=== PATIENT | female | born 1975 | race Caucasian/White ===

== ENCOUNTER 2017-09-07 16:29 | Emergency (ER) | payer MEDICAID, SELFPAY ==
[2017-09-07 16:30] VITALS: BP 142/84; PULSE 89; RESP 17; TEMP 36.9; O2SAT 98; BMI 17.7
--- NOTE | 2017-09-07 17:18 | ED.DCSUM_ITS ---
- ER Visit Summary Date of Service: 09/07/17 Chief Complaint: Sore throat History of Present Illness: The patient is a 42 F 42 history worsening sore throat, pain with swallowing. States unable to eat due to pain. No fevers. States initially noted some white flakes the back or tongue, she is not on any steroid inhalers or any immunocompromise history. No chest pains or shortness of breath. Denies previous similar symptoms. Physical Examination: General: Alert and oriented ?3, no acute distress HEENT: Normocephalic, atraumatic. Posterior pharyngeal erythema along with erythema on the back of her tongue.. 1+ symmetric tonsils. No trismus. Uvula midline. Moist mucosa membranes. Airway patent. Neck: supple, nontender. No lymphadenopathy. Cardiovascular: Regular rate and rhythm, no murmurs Respiratory: Normal breath sounds, symmetric, no distress Abdomen: Soft, nontender, nondistended Extremities: Nontender, no edema, pulses intact ?4 Neuro: no focal neurological deficits. Test Results: Rapid strep negative. Soft tissue neck x-ray notes mild subglottic narrowing. Emergency Department Course and Treatment: Rapid strep negative. Vitals stable. She is given Decadron. X-ray soft tissue neck normal epiglottis. There is mild subglottic narrowing concerns of croup per radiology. With patient's symptoms likely laryngitis. She does complain of some mild voice loss. There is no thrush on examination. Her for symptoms she will be provided Magic mouthwash to use as needed. She will follow-up as an outpatient. She return if any worsening symptoms. Treatment Plan: [] Disposition: Discharge Impression: 1. Acute laryngitis This note was generated with [employer] dictation software. It may contain incorrect words, spelling, and punctuation that were not noted in review of the chart prior to signing ED Disposition - Plan for ED Patient: Disposition: Home or Assisted Living Chief Complaint: Sore Throat Diagnosis: Acute laryngitis Instructions: ED Laryngitis Prescriptions: Magic Mouth Wash 5 ml PO Q6H PRN PRN #120 ml PRN Reason: Sore Throat Referrals: Wenceslao Khan MD [Primary Care Provider] - 3-5 Days
--- NOTE | 2017-09-07 17:30 | RAD_ITS ---
STUDY: X-RAY - SOFT TISSUE NECK REASON FOR EXAM: Female, 42 years old. Soft throat TECHNIQUE: AP and lateral view(s) of the neck were obtained. COMPARISON: None. FINDINGS: Normal visualized nasopharynx, oropharynx, hypopharynx. Normal epiglottis. There is narrowing of the subglottic air column which may be consistent with croup Normal prevertebral soft tissue structures. Normal visualized osseous structures. The soft tissue structures are unremarkable. RAD/Neck for Soft Tissue IMPRESSION: Mild subglottic stenosis consistent with croup Electronically Signed: Dejon Chang MD at 17:54 EST , Service support ,
[2017-09-07 18:27] VITALS: BP 107/54; PULSE 84; RESP 15; O2SAT 100
== END 2017-09-07 18:48 | disposition home or self-care (01) ==
PROVIDERS: Emergency Provider Emergency Medicine; Family Provider Family Medicine; PCP Family Medicine
DX: J04.0 Acute laryngitis (principal); J44.9 Chronic obstructive pulmonary disease, unspecified; Z72.0 Tobacco use
CPT/HCPCS: 70360; 87880; 99282

== ENCOUNTER 2018-04-13 21:38 | Emergency (ER) | payer MEDICAID, SELFPAY ==
[2018-04-13 21:38] VITALS: BP 117/83; PULSE 87; RESP 14; TEMP 37.2; O2SAT 100; BMI 18.0
--- NOTE | 2018-04-13 21:57 | ED.VISSUMM ---
- ER Visit Summary Date of Service: 04/13/18 Chief Complaint: Tongue pain History of Present Illness: The patient is a 42 F who states that Monday evening she ate a slice of [employer] pizza. She states she could barely get through the first piece as it was causing pain to her tongue and she wondered if they change their saw since she was allergic to it. She could not make it through the second piece felt like she needed to take an inhaler. She has been very busy so has been difficult for her to seek care to [facility] when she had time she came to the emergency department. Very concerned that she may be infectious to children. She states that family member who is a nurse believes that she may have thrush. She does not have HIV. She is not immunocompromise. She notes a burning sensation to the tongue. She is a smoker Physical Examination: Afebrile vital signs stable Gen: Well-nourished well-developed Head: Normocephalic atraumatic Eyes: Perrl EOMI ENT: TMs clear no rhinorrhea moist mucous membranes the tongue shows areas of redness as well as white plaque-like that does not exactly scrape off. This is usually consistent with geographic tongue. Neck: Supple no lymphadenopathy no JVD nontender CVS: Regular rate rhythm no murmurs normal S1-S2 Respiratory: No distress clear to auscultation bilaterally chest nontender Abdomen: Soft nontender nondistended normal bowel sounds no masses Back: Nontender Extremity: Nontender no edema Skin: Normal color no rash Neuro: alert orientated ?3 CN II-XII intact normal strength sensation reflexes gait cerebellar Psych: Normal affect normal mood Emergency Department Course and Treatment: Patient should avoid spicy foods and cigarettes. Patient will use Peridex and as needed viscous lidocaine. She should follow-up with primary care and dentistry. Impression: 1. Geographic tongue This note was generated with [employer] dictation software. It may contain incorrect words, spelling, and punctuation that were not noted in review of the chart prior to signing ED Disposition - Plan for ED Patient: Disposition: Home or Assisted Living Chief Complaint: Other, Pain/Inj Diagnosis: Geographical tongue Prescriptions: Chlorhexidine Gluconate [Peridex] 15 ml MM BID #300 ml Lidocaine 2% Viscous [Xylocaine Viscous] 15 ml MM TID PRN #30 udc PRN Reason: Pain Referrals: Wenceslao Khan MD [Primary Care Provider] - Additional Instructions: Avoid cigarettes Avoid spicy foods
--- NOTE | 2018-04-13 22:01 | ED.DCSUM_ITS ---
- ER Visit Summary Date of Service: 04/13/18 Chief Complaint: Tongue pain History of Present Illness: The patient is a 42 F who states that Monday evening she ate a slice of [employer] pizza. She states she could barely get through the first piece as it was causing pain to her tongue and she wonder ed if they change their saw since she was allergic to it. She could not make it through the second piece felt like she needed to take an inhaler. She has been very busy so has been difficult for her to seek care to [facility] when she had time she came to the emergency department. Very concerned that she may be infectious to children. She states that family member who is a nurse believes that she may have thrush. She does not have HIV. She is not immunocompromise. She notes a burning sensation to the tongue. She is a smoker Physical Examination: Afebrile vital signs stable Gen: Well-nourished well-developed Head: Normocephalic atraumatic Eyes: Perrl EOMI ENT: TMs clear no rhinorrhea moist mucous membranes the tongue shows areas of redness as well as white plaque-like that does not exactly scrape off. This is usually consistent with geographic tongue. Neck: Supple no lymphadenopathy no JVD nontender CVS: Regular rate rhythm no murmurs normal S1-S2 Respiratory: No distress clear to auscultation bilaterally chest nontender Abdomen: Soft nontender nondistended normal bowel sounds no masses Back: Nontender Extremity: Nontender no edema Skin: Normal color no rash Neuro: alert orientated ?3 CN II-XII intact normal strength sensation reflexes gait cerebellar Psych: Normal affect normal mood Emergency Department Course and Treatment: Patient should avoid spicy foods and cigarettes. Patient will use Peridex and as needed viscous lidocaine. She should follow-up with primary care and dentistry. Impression: 1. Geographic tongue This note was generated with [employer] dictation software. It may contain incorrect words, spelling, and punctuation that were not noted in review of the chart prior to signing ED Disposition - Plan for ED Patient: Disposition: Home or Assisted Living Chief Complaint: Other, Pain/Inj Diagnosis: Geographical tongue Prescriptions: Chlorhexidine Gluconate [Peridex] 15 ml MM BID #300 ml Lidocaine 2% Viscous [Xylocaine Viscous] 15 ml MM TID PRN #30 udc PRN Reason: Pain Referrals: Wenceslao Khan MD [Primary Care Provider] - Additional Instructions: Avoid cigarettes Avoid spicy foods
[2018-04-13] MEDS: Chlorhexidine 480 ML 15 ML PO (22:22)
[2018-04-13 22:30] VITALS: RESP 16
== END 2018-04-13 22:30 | disposition home or self-care (01) ==
PROVIDERS: Emergency Provider Emergency Medicine; Family Provider Family Medicine; PCP Family Medicine
DX: K14.1 Geographic tongue (principal); J44.9 Chronic obstructive pulmonary disease, unspecified; F17.200 Nicotine dependence, unspecified, uncomplicated
CPT/HCPCS: 99283

== ENCOUNTER 2022-04-26 22:19 | Emergency (ER) | payer MEDICAID, SELFPAY ==
[2022-04-26 22:19] VITALS: BP 128/86; PULSE 106; RESP 16; TEMP 36.4; O2SAT 98; BMI 18.0
[2022-04-26] MEDS: DiphenhydrAMINE 50 MG/ML Syringe 25 MG IV (22:56)
[2022-04-26] MEDS: Metoclopramide 10 MG/2 ML Vial IV (22:58)
[2022-04-26] MEDS: 0.9% Normal Saline 1,000 ML 999 ML IV (22:58)
[2022-04-26] MEDS: Erythromycin Base 1 OPTH.TUBE 1 APPLIC RIGHT EYE (22:59)
--- NOTE | 2022-04-26 23:53 | EDS_ITS ---
HPI History of Present Illness Chief Complaint: Headache Informant: patient Onset/Context/Timing Onset: Today Context: Sudden Timing: Continuous Quality -Headache: Positive for Similar Prior Headaches Location: Frontal Worsened by: Light Relieved by: Nothing Associated Symptoms/Injury Associated Symptoms: Positive for Nausea, Vomiting, Sinus Pressure, Preceding Aura, Visual Changes, Blurred Vision and Photophobia; Negative for Fever, Sore Throat, Numbness, Tingling or Visual Loss Narrative Narrative: Patient presents with migraine headache that began today. Patient states she has had a stye in her right upper eyelid for the last 5 days and pain in her left ear for the last 5 days. Patient states her headache feels similar to prior migraine headaches. Patient states it is mainly over the frontal area. Patient states it is worse with light. Patient states she had some lights in her vision prior to the start of her headache. Patient states this is similar to prior auras. Patient admits to some photophobia. Patient also admits to some blurred vision. Patient denies any fevers or chills. Patient does admit to some sinus pressure. [facility] Medical History (Updated 04/27/22 @ 00:[address] Ghanshyam Castorena DO) Migraine headache Home Medications oxycodone-acetaminophen 5 mg-325 mg tablet 1 tab PO Q4H PRN PRN Pain ##12 06/26/16 [Rx Last Taken Unknown] Magic Mouth Wash 5 ml PO Q6H PRN PRN Sore Throat ##120 09/07/17 [Rx Last Taken Unknown] chlorhexidine gluconate 0.12 % mouthwash 15 ml MM BID #300 mL 04/13/18 [Rx Last Taken Unknown] lidocaine HCl 2 % mucosal solution 15 ml MM TID PRN Pain ##30 04/13/18 [Rx Last Taken Unknown] Allergy/AdvReac Type Severity Reaction Status Date / Time aspirin Allergy Nausea/Vom/ Verified 04/26/22 22:21 Diarrhea ibuprofen Allergy Nausea/Vom/ Verified 04/26/22 22:21 Diarrhea naproxen [From Naprosyn] Allergy Nausea/Vom/ Verified 04/26/22 22:21 Diarrhea tramadol HCl [From Ultram] Allergy Nausea/Vom/ Verified 04/26/22 22:21 Diarrhea Surgical History (Updated 04/26/22 @ 23:[address] Ghanshyam Schwiger, DO) Hx of cholecystectomy Social History Smoking Status: Current every day smoker tobacco type: cigarettes ROS ROS ED Constitutional Constitutional ED: Denies chills or fever(s) Eyes Eyes: Reports blurry vision; Denies diplopia ENT ENT ED: Reports ear pain left; Denies rhinorrhea or sore throat Cardiovascular Cardiovascular: Reports chest pain; Denies palpitations Respiratory/Chest Respiratory/Chest: Denies cough or dyspnea Gastrointestinal Gastrointestinal: Reports nausea and vomiting Genitourinary Genitourinary ED: Denies dysuria or hematuria Musculoskeletal Musculoskeletal: Reports neck pain; Denies back pain Integumentary Denies abscess or rash Neurologic Neurologic: Reports headache(s); Denies weakness Allergic/Immunologic Allergic/Immunologic ED: Denies mouth swelling or urticaria EXAM Physical Exam Const Vital Signs: 04/26/22 22:19 Temperature 97.6 F L Temperature Source Temporal Pulse Rate 106 H Respiratory Rate 16 Blood Pressure 128/86 H Blood Pressure Mean 100 Pulse Ox 98 Oxygen Delivery Method Room Air Positive well nourished and well developed General Appearance ED: well developed HEENT Reports TM's clear and moist mucous membranes Tympanic Membrane ED: Yes TM's clear Eyes PERRL and EOMs intact bilaterally Eyes Narrative: There is an internal hordeolum of the lateral aspect of the right upper eyelid. There is no active discharge or drainage. There is some tenderness over this area. Neck supple and no JVD Resp normal respiratory effort and clear to auscultation bilaterally Cardio regular rate, regular rhythm and no murmurs GI normal to inspection, nondistended, normoactive bowel sounds and non-tender Palpation: soft Extremity normal to inspection General Extremety ED: Negative for edema or tenderness General Extremity: Negative for edema Neuro oriented x3, CN's II-XII intact bilaterally and no sensory deficits noted Sensorium / Orientation: alert Motor Exam: strength 5/5 throughout Psych mental status grossly normal Skin no rashes or lesions noted MDM MDM MDM Narrative Medical decision making narrative: Patient was given erythromycin ophthalmic ointment to the right eye. Patient was given the tube to go home with. Patient was instructed to use warm compresses over the right eye. Patient was given IV fluids, Reglan, and Benadryl. Patient is feeling better on reevaluation. Patient was instructed to rest in a dark quiet room. Patient was instructed to follow-up with her primary care physician in 5 to 7 days. Patient understood and was agreeable with the plan. All questions were answered. Discharge Plan Triage Chief Complaint: Headache Other Complaint: Ear Problem Eye Problem ED Provider: Ghanshyam Castorena Dx/Rx/DC Orders Clinical Impression: Migraine headache, Hordeolum internum of right upper eyelid Instructions: ED, Migraine (Classical), ED Sty Prescriptions: No Action oxycodone-acetaminophen 1 TABLET tablet 1 tab PO Q4H PRN PRN (Reason: Pain) Qty: 12 0RF Magic Mouth Wash 5 ml PO Q6H PRN PRN (Reason: Sore Throat) Qty: 120 0RF Rx Instructions: Pharmacist: Compound with equal parts DiphenhydrAMINE, Mylanta, and Lidocaine Viscous. swish and swallow as needed. chlorhexidine gluconate 15 ML mouthwash 15 ml MM BID Qty: 300 0RF lidocaine HCl 15 ML solution 15 ml MM TID PRN (Reason: Pain) Qty: 30 0RF Rx Instructions: Swish and Spit before meals Primary Care Provider: Jose Daniel Tanner Referrals: Jose Daniel Tanner DO [Primary Care Provider] - 5-7 Days Activity Restrictions/Additional Instructions: Apply a thin strip of antibiotic ointment to your right eye 3 times a day. Use warm compresses to your right upper eyelid. This will help it drain. Disposition Disposition: Home, Self Care
== END 2022-04-27 00:08 | disposition home or self-care (01) ==
PROVIDERS: Emergency Provider Emergency Medicine; Visit Provider Emergency Medicine
DX: H00.021 Hordeolum internum right upper eyelid (principal); G43.909 Migraine, unspecified, not intractable, without status migrainosus; F17.210 Nicotine dependence, cigarettes, uncomplicated; R07.9 Chest pain, unspecified
CPT/HCPCS: 96361; 96374; 96375; 99283; J7030; A4216

== ENCOUNTER 2022-10-18 22:35 | Emergency (ER) | payer MEDICAID, SELFPAY ==
[2022-10-18 22:36] VITALS: BP 124/75; PULSE 102; RESP 16; TEMP 37.2; O2SAT 99
--- NOTE | 2022-10-18 22:41 | EDS_ITS ---
HPI History of Present Illness Chief Complaint: Headache Narrative Narrative: 47-year-old female here with headache. She notes that started gradually proximally 24 hours ago. Denies any recent head trauma. She denies any focal numbness weakness slurred speech or facial drooping. She denies any neck stiffness, recent fever or sick contacts patient denies sudden onset or thunderclap headache, denies maximal intensity within 1 minute, vomiting, neck pain or stiffness, changes in vision, fever, history malignancy, syncope, seizures. She endorses nausea and photophobia. [facility] Medical History (Updated 10/18/22 @ 22:[address] Jeremy Lopez, DO) Migraine headache Home Medications oxycodone-acetaminophen 5 mg-325 mg tablet 1 tab PO Q4H PRN PRN Pain #12 tabs 06/26/16 [Rx Last Taken Unknown] Magic Mouth Wash 5 ml PO Q6H PRN PRN Sore Throat #120 mL 09/07/17 [Rx Last Taken Unknown] chlorhexidine gluconate 0.12 % mouthwash 15 ml MM BID #300 mL 04/13/18 [Rx Last Taken Unknown] lidocaine HCl 2 % mucosal solution 15 ml MM TID PRN Pain ##30 04/13/18 [Rx Last Taken Unknown] prochlorperazine maleate 5 mg tablet (Compazine) 5 mg PO TID PRN headache 7 days #21 tabs 10/18/22 [Rx Last Taken Unknown] Allergy/AdvReac Type Severity Reaction Status Date / Time aspirin Allergy Nausea/Vom/ Verified 10/18/22 22:35 Diarrhea ibuprofen Allergy Nausea/Vom/ Verified 10/18/22 22:35 Diarrhea naproxen [From Naprosyn] Allergy Nausea/Vom/ Verified 10/18/22 22:35 Diarrhea tramadol HCl [From Ultram] Allergy Nausea/Vom/ Verified 10/18/22 22:35 Diarrhea Surgical History Hx of cholecystectomy Social History Smoking Status: Current every day smoker tobacco type: cigarettes ROS ROS ED ROS Narrative Constitutional: Denies fever HEENT: Denies sore throat Neck: Denies neck pain Cardiovascular: Denies chest pain, syncope Respiratory: Denies shortness of breath GI: Denies nausea vomiting or abdominal pain : Denies changes in urinary habits Musculoskeletal: Denies muscle or joint pain Neurologic: Denies numbness weakness or loss of sensation, endorses headache Skin denies rash EXAM Physical Exam Narrative Exam Narrative: Nursing triage notes reviewed, Vital signs reviewed Constitutional: please see [facility] HENT: MMM Eyes: Pupils equal round and reactive to light, Extraocular muscles intact Neck: No stridor, no JVD, full neck ROM Lungs: Clear to auscultation, No wheezing or rales. No increased work of breathing, no conversational dyspnea, no accessory muscle use, no nasal flaring. No respiratory distress noted Heart: Regular rate and rhythm, No murmurs, No rubs and No gallops, 2+ distal pulses (radial, femoral, posterior tibial) in all extremities Abdomen: Soft, there is no tenderness, rigidity, rebound or guarding, no obvious peritoneal signs, no palpable pulsatile abdominal masses, no auscultated abdominal bruit : No CVAT Extremities: No edema Neuro: Alert and oriented x3, neuro exam at baseline, cranial nerves II through XII are intact. No pain with extraocular muscle movement. There is negative test of skew. Normal speech. 5 of 5 strength in upper and lower extremities in flexion extension. Intact sensation to light touch in upper and lower extremity dermatomes. No truncal or extremity ataxia. No dysdiadochokinesia. Normal gait. 2+ reflexes. No meningeal signs. Negative Babinski. NIH of 0 Skin: No rash or lesions noted Const Vital Signs: 10/18/22 22:36 Temperature 99.0 F Temperature Source Temporal Pulse Rate 102 H Respiratory Rate 16 Blood Pressure 124/75 H Blood Pressure Mean 91 Pulse Ox 99 Oxygen Delivery Method Room Air [facility] [place] Narrative Medical decision making narrative: Chief Complaint: Headache External records reviewed: Last visit for headache remotely, no recent neuroimaging I considered the following differential diagnosis: Subarachnoid hemorrhage, m eningitis, intracranial hemorrhage, skull fracture, primary headache Exam without focal neurologic deficits. She had no red flag symptoms to suggest catastrophic headache such as subarachnoid hemorrhage, meningitis intracranial hemorrhage carotid artery dissection etc. Her presentation and history with photophobia and presentation similar to prior migraines is suggestive of a primary headache. She was treated accordingly with oral Compazine, IM Toradol, oral Decadron. She was given Compazine as needed for home-going given neurology follow-up. The patient looks great and is in no significant objective discomfort currently. The patient's headache is non-specific. Exam is unremarkable. The patient is in no distress and the patient?s neurological exam is non-focal, neck is supple and without meningismus. The headache is not consistent with meningitis or infection, nor is it consistent with intracranial bleed (SAH etc.), carotid dissection, nor mass by history and examination. Medication and outpatient follow-up was instructed. The patient was instructed to return as needed or if symptoms changed or worsened, fever developed or inability to tolerate fluids. The patient agreed with plan. Factors affecting care: History of migraine Social determinants of health: Current every day smoker History obtained from others: None Shared decision making: I will have a discussion with the patient and or visitors regarding risk/benefits of further testing or admission. They will be made aware of of the risk/benefits inherent in this decision they will be given the opportunity to voice understanding. Consults: None Treatment and Re-Evaluation :: Repeat neurologic exam remains benign. Discharge Plan Triage Chief Complaint: Headache ED Provider: Jeremy Lopez Dx/Rx/DC Orders Clinical Impression: Migraine headache Instructions: ED Headache Unspecified Prescriptions: New prochlorperazine maleate [Compazine] 5 mg tablet 5 mg PO TID PRN (Reason: headache) 7 Days Qty: 21 0RF No Action oxycodone-acetaminophen 1 TABLET tablet 1 tab PO Q4H PRN PRN (Reason: Pain) Qty: 12 0RF Magic Mouth Wash 5 ml PO Q6H PRN PRN (Reason: Sore Throat) Qty: 120 0RF Rx Instructions: Pharmacist: Compound with equal parts DiphenhydrAMINE, Mylanta, and Lidocaine Viscous. swish and swallow as needed. chlorhexidine gluconate 15 ML mouthwash 15 ml MM BID Qty: 300 0RF lidocaine HCl 15 ML solution 15 ml MM TID PRN (Reason: Pain) Qty: 30 0RF Rx Instructions: Swish and Spit before meals Primary Care Provider: Jose Daniel Tanner Referrals: Jose Daniel Tanner DO [Primary Care Provider] - Disposition Disposition: Home, Self Care
[2022-10-18] MEDS: Ketorolac 15 MG/ML Vial IM (23:38)
[2022-10-18] MEDS: dexAMETHasone 4 MG Tablet 6 MG PO (23:38)
[2022-10-18] MEDS: proCHLORPERazine 5 MG Tablet PO (23:38)
[2022-10-18 23:42] VITALS: BMI 17.3
[2022-10-19 00:16] VITALS: BP 105/70; PULSE 95; RESP 18; O2SAT 100
== END 2022-10-19 01:13 | disposition home or self-care (01) ==
PROVIDERS: Emergency Provider Emergency Medicine; Visit Provider Emergency Medicine
DX: G43.909 Migraine, unspecified, not intractable, without status migrainosus (principal); F17.210 Nicotine dependence, cigarettes, uncomplicated
CPT/HCPCS: 93005; 96372; 99283

== ENCOUNTER 2023-01-27 19:03 | Emergency (ER) | payer MEDICAID, SELFPAY ==
[2023-01-27 19:04] VITALS: BP 137/77; PULSE 70; RESP 18; TEMP 36.8; O2SAT 99; BMI 17.5
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
[2023-01-27] MEDS: Erythromycin Base 1 OPTH.TUBE 1 APPLIC LEFT EYE (21:16)
== END 2023-01-27 21:22 | disposition home or self-care (01) ==
PROVIDERS: Emergency Provider Emergency Medicine; Visit Provider Emergency Medicine
DX: H00.011 Hordeolum externum right upper eyelid (principal); H00.014 Hordeolum externum left upper eyelid; F17.210 Nicotine dependence, cigarettes, uncomplicated
CPT/HCPCS: 99283

== ENCOUNTER 2023-07-07 13:14 | Emergency (ER) | payer MEDICAID, SELFPAY ==
[2023-07-07 13:15] VITALS: BP 143/93; PULSE 92; RESP 14; TEMP 36.2; O2SAT 100; BMI 17.6
--- NOTE | 2023-07-07 13:46 | EDS_ITS ---
HPI History of Present Illness Chief Complaint: Headache Informant: patient Narrative Narrative: Patient presents with what she describes as her normal migraine. She has had migraines since she is 10 years old. She has had extensive evaluation. She normally takes rizatriptan but she is out of it. She also normally takes Zofran but she is out of that. This headache started about 330 this morning. It is across the whole front of her headache and radiates a l ittle toward the back. She has some photophobia and nausea and vomiting. No trauma. No fevers. She states this is her typical headache. [facility] Medical History Migraine headache Home Medications oxycodone-acetaminophen 5 mg-325 mg tablet 1 tab PO Q4H PRN PRN Pain #12 tabs 06/26/16 [Rx Last Taken Unknown] Magic Mouth Wash 5 ml PO Q6H PRN PRN Sore Throat #120 mL 09/07/17 [Rx Last Taken Unknown] chlorhexidine gluconate 0.12 % mouthwash 15 ml MM BID #300 mL 04/13/18 [Rx Last Taken Unknown] lidocaine HCl 2 % mucosal solution 15 ml MM TID PRN Pain ##30 04/13/18 [Rx Last Taken Unknown] prochlorperazine maleate 5 mg tablet (Compazine) 5 mg PO TID PRN headache 7 days #21 tabs 10/18/22 [Rx Last Taken Unknown] ondansetron 4 mg disintegrating tablet 4 mg PO Q8H PRN PRN Nausea #10 tabs 07/07/23 [Rx Last Taken Unknown] rizatriptan 5 mg disintegrating tablet See Rx Instructions PO .COMPLEX #10 tabs 07/07/23 [Rx Last Taken Unknown] Allergy/AdvReac Type Severity Reaction Status Date / Time aspirin Allergy Nausea/Vom/ Verified 07/07/23 13:15 Diarrhea ibuprofen Allergy Nausea/Vom/ Verified 07/07/23 13:15 Diarrhea naproxen [From Naprosyn] Allergy Nausea/Vom/ Verified 07/07/23 13:15 Diarrhea tramadol HCl [From Ultram] Allergy Nausea/Vom/ Verified 07/07/23 13:15 Diarrhea Surgical History Hx of cholecystectomy Social History Smoking Status: Current every day smoker tobacco type: cigarettes ROS ROS ED ROS Narrative A complete review of systems was performed and is negative except as documented in the history of present illness. Some specific details below. Constitutional: No recent fevers or chills. No rigors. Patient has not generally felt ill. She felt fine before the headache started. EYE: No discharge, visual complaints, or pain. She has photophobia but no visual scotoma or flashing lights. She has had that occasionally but not routinely. ENT: No difficulty swallowing. No swelling. No sinus pressure or pain. No nasal discharge. No change in hearing. No ear pain. CV: No chest pain, pressure or aching. No palpitations or irregular beats. Patient has not been presyncopal or syncopal. Respiratory: No trouble breathing. No cough. She is a smoker and was counseled to quit. GI: No abdominal pain. She has had some nausea and vomiting. She is not that nauseated now though. : No frequency dysuria or hematuria. Musculoskeletal: No recent trauma. No pains. No swelling. Skin: No rash. No diaphoresis. Neuro: No weakness or numbness. No difficulty with speaking. No difficulty understanding speech. No visual loss. Please see history of present illness also. Endocrine: No polyuria or polydipsia. EXAM Physical Exam Narrative Exam Narrative: CONSTITUTIONAL: Patient is nontoxic in appearance. She is in a dark room. But she is conversant. HEENT: No notable trauma. Mucous membranes moist. No sinus tenderness. Tympanic membranes are normal. No temporal artery tenderness. No facial rashes or swelling. She actually feels better with some pressure on the forehead. EYES: No conjunctival injection. No proptosis. She does have some mild photophobia but pupillary response and range of motion is normal NECK: No meningismus. No JVD. Range of motion is normal looking up down left and right without discomfort. CARDIOVASCULAR: Regular rate. Regular rhythm. No notable murmur. No JVD. RESPIRATORY: No respiratory distress. Breathing is unlabored. No wheezes. No rhonchi. No rales. No pain with a deep breath. GASTROINTESTINAL: Not distended. Bowel sounds are normal. No tenderness. No guarding. No rebound. No palpable mass. No bruit. GENITOURINARY: No tenderness over the bladder. No CVA tenderness. MUSCULOSKELETAL: Atraumatic. No peripheral edema. No cord. No tenderness along the deep venous system. No asymmetry. NEUROLOGICAL: Patient is alert and oriented. No focal deficit noted. NIH stroke scale is 0. SKIN: No noted rashes. No diaphoresis. No vesicles noted. PSYCHIATRIC: Patient is calm. Mood is appropriate. Const Vital Signs: 07/07/23 13:15 Temperature 97.2 F L Temperature Source Temporal Pulse Rate 92 Respiratory Rate 14 Blood Pressure 143/93 H Blood Pressure Mean 109 Pulse Ox 100 MDM MDM MDM Narrative Medical decision making narrative: Patient was given IV, Benadryl and Compazine. She is getting better but not c ompletely gone. But when I talked to her she was much more animated. She was talking. Opening the door and the lights did not bother her. She and me to her daughter. She admitted she was feeling better. We talked about further meds. She has received Decadron and Toradol and done well. She states that works very well. Although she has GI upset with oral nonsteroidals IV or IM do not bother her. She would like to go home. We will get her these meds and then get her home. I have written for further meds at home to refill as she requested. We discussed reasons to return. Discharge Plan Triage Chief Complaint: Headache ED Provider: Herminio Mccormick Dx/Rx/DC Orders Clinical Impression: Migraine headache Instructions: ED, Migraine (Classical) Prescriptions: New rizatriptan 5 mg tablet,disintegrating See Rx Instructions .ROUTE .COMPLEX Qty: 10 0RF Rx Instructions: take 1 tablet at onset of headache; if no relief, may repeat 1 tablet after at least 2 hrs ondansetron [ondansetron] 4 mg tablet,disintegrating 4 mg PO Q8H PRN PRN (Reason: Nausea) Qty: 10 0RF No Action oxycodone-acetaminophen 1 TABLET tablet 1 tab PO Q4H PRN PRN (Reason: Pain) Qty: 12 0RF Magic Mouth Wash 5 ml PO Q6H PRN PRN (Reason: Sore Throat) Qty: 120 0RF Rx Instructions: Pharmacist: Compound with equal parts DiphenhydrAMINE, Mylanta, and Lidocaine Viscous. swish and swallow as needed. chlorhexidine gluconate 15 ML mouthwash 15 ml MM BID Qty: 300 0RF lidocaine HCl 15 ML solution 15 ml MM TID PRN (Reason: Pain) Qty: 30 0RF Rx Instructions: Swish and Spit before meals prochlorperazine maleate [Compazine] 5 mg tablet 5 mg PO TID PRN (Reason: headache) 7 Days Qty: 21 0RF Primary Care Provider: Jose Daniel Tanner Referrals: Jose Daniel Tanner DO [Primary Care Provider] - Disposition Disposition: Home, Self Care
[2023-07-07] MEDS: DiphenhydrAMINE 50 MG/ML Syringe 25 MG IV (13:54)
[2023-07-07] MEDS: 0.9% Normal Saline (1000mL) 1,000 ML 999 ML IV (13:54)
[2023-07-07] MEDS: proCHLORPERazine 10 MG/2 ML Vial IV (13:55)
[2023-07-07] MEDS: dexAMETHasone 10 MG/ML Vial 6 MG IV (14:46)
[2023-07-07] MEDS: Ketorolac 15 MG/ML Vial IV (14:47)
== END 2023-07-07 15:58 | disposition home or self-care (01) ==
PROVIDERS: Emergency Provider Emergency Medicine; Referring Provider Emergency Medicine; Visit Provider Emergency Medicine
DX: G43.909 Migraine, unspecified, not intractable, without status migrainosus (principal); F17.210 Nicotine dependence, cigarettes, uncomplicated
CPT/HCPCS: 96361; 96374; 96375; 99282; J7030; A4216

== ENCOUNTER 2023-08-25 11:12 | Emergency (ER) | payer MEDICAID, SELFPAY ==
[2023-08-25 11:12] VITALS: BP 131/118; PULSE 128; RESP 16; TEMP 36.6; O2SAT 98; BMI 16.2
--- NOTE | 2023-08-25 11:28 | EDS_ITS ---
HPI History of Present Illness Chief Complaint: Lower Extremity Injury PFSH PFS Medical History Migraine headache Home Medications oxycodone-acetaminophen 5 mg-325 mg tablet 1 tab PO Q4H PRN PRN Pain #12 tabs 06/26/16 [Rx Last Taken Unknown] Magic Mouth Wash 5 ml PO Q6H PRN PRN Sore Throat #120 mL 09/07/17 [Rx Last Taken Unknown] chlorhexidine gluconate 0.12 % mouthwash 15 ml MM BID #300 mL 04/13/18 [Rx Last Taken Unknown] lidocaine HCl 2 % mucosal solution 15 ml MM TID PRN Pain ##30 04/13/18 [Rx Last Taken Unknown] prochlorperazine maleate 5 mg tablet (Compazine) 5 mg PO TID PRN headache 7 days #21 tabs 10/18/22 [Rx Last Taken Unknown] ondansetron 4 mg disintegrating tablet 4 mg PO Q8H PRN PRN Nausea #10 tabs 07/07/23 [Rx Last Taken Unknown] rizatriptan 5 mg disintegrating tablet See Rx Instructions PO .COMPLEX #10 tabs 07/07/23 [Rx Last Taken Unknown] meloxicam 15 mg tablet 15 mg PO DAILY #7 tabs 08/25/23 [Rx Last Taken Unknown] Allergy/AdvReac Type Severity Reaction Status Date / Time aspirin Allergy Nausea/Vom/ Verified 08/25/23 11:14 Diarrhea ibuprofen Allergy Nausea/Vom/ Verified 08/25/23 11:14 Diarrhea naproxen [From Naprosyn] Allergy Nausea/Vom/ Verified 08/25/23 11:14 Diarrhea tramadol HCl [From Ultram] Allergy Nausea/Vom/ Verified 08/25/23 11:14 Diarrhea Surgical History Hx of cholecystectomy Social History Smoking Status: Current every day smoker tobacco type: cigarettes EXAM Physical Exam Const Vital Signs: 08/25/23 11:12 Temperature 98 F Temperature Source Temporal Pulse Rate 128 H Respiratory Rate 16 Blood Pressure 131/118 H Blood Pressure Mean 122 Pulse Ox 98 Oxygen Delivery Method Room Air MDM MDM MDM Narrative Medical decision making narrative: HISTORY OF PRESENT ILLNESS: 48 old female here with bilateral leg pain. States has history of osteoporosis. Notes she has pain all over. Started 2 days ago. She notes increased exertion as she is been moving materials into a storage unit over the last 3 days. Denies any falls or trauma. Denies any back pain. Patient denies any saddle anesthesia, urinary retention, bowel or bladder incontinence, lower extremity weakness, fever or IV drug use, no recent spinal manipulation or surgery, no recent urinary catheterization. Denies any fever. REVIEW OF SYSTEMS: Pertinent positives: Leg pain Pertinent negatives: Back pain, weakness, loss sensation, fever PHYSICAL EXAM: Nursing triage notes reviewed, Vital signs reviewed Constitutional: please see mdm HENT: MMM Eyes: Pupils equal round and reactive to light, Extraocular muscles intact Neck: No stridor, no JVD, full neck ROM Lungs: Clear to auscultation, No wheezing or rales. No increased work of breathing, no conversational dyspnea, no accessory muscle use, no nasal flaring. No respiratory distress noted Heart: Regular rate and rhythm, No murmurs, No rubs and No gallops, 2+ distal pulses (radial, femoral, posterior tibial) in all extremities Abdomen: Soft, there is no tenderness, rigidity, rebound or guarding, no obvious peritoneal signs, no palpable pulsatile abdominal masses, no auscultated abdominal bruit : No CVAT Extremities: No edema, compartments are soft, no bony tenderness over the knee ankle or hip. No obvious joint effusion or signs of septic arthritis. No obvious crepitus bullae or signs of erythema. Neuro: No focal neurological deficits, cranial nerves II through XII intact, 5/5 strength in all extremities. Intact sensation to light touch in all extremities, 2+ reflexes bilateral patella tendons. Normal gait. No ataxia. Skin: No rash or lesions noted MEDICAL DECISION MAKING: Chief Complaint: Leg pain External records reviewed: No recent advanced imaging the involved extremities Factors affecting care: none migraine headache MDM Narrative: Patient was initially tachycardic otherwise hemodynamically stable afebrile nontoxic-appearing. Lower extremity exam I considered the following differential diagnosis: Fracture dislocation, arterial occlusion, DVT, compartment syndrome, necrotizing fasciitis, septic arthritis, flu induced myositis ALL IMAGES (IF OBTAINED) HAVE BEEN PERSONALLY REVIEWED AND INTERPRETED BY MYSELF. Flu test was positive for influenza A After pain medicine patient noted improvement. Heart rate improved from 128 to 70 by palp. Patient without vomiting. She can tolerate p.o. fluid. She is appropriate discharge home with instructions to take meloxicam, Tylenol to return if symptoms change or worsen specifically respiratory symptoms or decreased or change in urination that would suggest issues with rhabdomyolysis. The patient and/or family, caregivers express understanding. The patient and/or family, caregivers agrees with the plan. Shared decision making: I will have a discussion with the patient and or visitors regarding risk/benefits of further testing or admission. They will be made aware of of the risk/benefits inherent in this decision they will be given the opportunity to voice understanding. Total critical care time today provided was at least 0 minutes. This excludes separately billable procedures. Critical care time (if documented) is secondary to the patient having high probability of clinically significant/life threaten ing deterioration in the patient's condition which required my urgent intervention. Impression: 1. Leg pain 2. Influenza A 3. Influenza induced myositis Dispo: Discharge This note was generated with [employer] dictation software. It may contain incorrect words, spelling, and punctuation that were not noted in review of the chart prior to signing. Discharge Plan Triage Chief Complaint: Lower Extremity Injury ED Provider: Jeremy Lopez Dx/Rx/DC Orders Clinical Impression: Influenza A Instructions: ED Myositis Prescriptions: New meloxicam 15 mg tablet 15 mg PO DAILY Qty: 7 0RF No Action oxycodone-acetaminophen 1 TABLET tablet 1 tab PO Q4H PRN PRN (Reason: Pain) Qty: 12 0RF Magic Mouth Wash 5 ml PO Q6H PRN PRN (Reason: Sore Throat) Qty: 120 0RF Rx Instructions: Pharmacist: Compound with equal parts DiphenhydrAMINE, Mylanta, and Lidocaine Viscous. swish and swallow as needed. chlorhexidine gluconate 15 ML mouthwash 15 ml MM BID Qty: 300 0RF lidocaine HCl 15 ML solution 15 ml MM TID PRN (Reason: Pain) Qty: 30 0RF Rx Instructions: Swish and Spit before meals prochlorperazine maleate [Compazine] 5 mg tablet 5 mg PO TID PRN (Reason: headache) 7 Days Qty: 21 0RF rizatriptan 5 mg tablet,disintegrating See Rx Instructions .ROUTE .COMPLEX Qty: 10 0RF Rx Instructions: take 1 tablet at onset of headache; if no relief, may repeat 1 tablet after at least 2 hrs ondansetron [ondansetron] 4 mg tablet,disintegrating 4 mg PO Q8H PRN PRN (Reason: Nausea) Qty: 10 0RF Primary Care Provider: Jose Daniel Tanner Referrals: Jose Daniel Tanner DO [Primary Care Provider] - Activity Restrictions/Additional Instructions: Thank you for trusting us with your care today! Please take Tylenol (2 pills, 650 mg), ibuprofen (2 pills, 400 mg) every 6 hours as needed for pain and fever control. Please push plenty of fluids. I recommend Pedialyte, body armor or other electrolyte containing solution. Please return to the emergency department if your symptoms change or worsen. Please follow with your primary care physician for further outpatient evaluation and management. Disposition Disposition: Home, Self Care
[2023-08-25] MEDS: Orphenadrine 60 MG/2 ML Ampul IM (12:09)
[2023-08-25] MEDS: Ketorolac 30 MG/ML Syringe IM (12:10)
[2023-08-25] MEDS: predniSONE 20 MG Tablet 40 MG PO (12:10)
--- OUTSIDE RECORDS SUMMARY | 2023-08-25 12:24 | XMS RPT_ITS | CCD ---
Author Name Unknown Address [address] [place] [address] Organization [facility] Care Team Providers Care Customer Experience Retail Clerk Name Role Phone DENA IRBY Unavailable Unavailable DENA IRBY Unavailable Unavailable ANGEL GARCIA Unavailable Unavailable DENA IRBY Unavailable Unavailable DENA IRBY Unavailable Unavailable ANGEL GARCIA Unavailable Unavailable RADHA PRADHAN, ANGEL Montoya Primary Care Physician JEREMIAH RUSHING DO Primary Care Physician JEREMIAH RUSHING DO Attending Unavailable JEREMIAH RUSHING DO Primary Care Unavailable JEREMIAH RUSHING DO Primary Care Unavailable JEREMIAH RUSHING DO Attending Unavailable JEREMIAH RUSHING DO Primary Care Unavailable JEREMIAH RUSHING DO Attending Unavailable JEREMIAH RUSHING DO Primary Care Unavailable JEREMIAH RUSHING DO Attending Unavailable JEREMIAH RUSHING DO Primary Care Unavailable JEREMIAH RUSHING DO Attending Unavailable RADHA MARK, DR. ANGEL Montoya Attending Kiki GARCIA MD., DR. ANGEL Montoya Primary Care Kiki hernandez Allergies Allergy Classification Reported Allergen(s) Allergy Type Date of Onset Reaction(s) Facility (7 sources) Aspirin; Translations: [aspirin] Drug Allergy [facility] Work Phone: (7 sources) Bee/Wasp/Ant venom Allergy to substance [facility] Work Phone: (7 sources) Ibuprofen; Translations: [ibuprofen] Drug Allergy Hives [facility] Work Phone: (7 sources) Naproxen; Translations: [naproxen] Drug Allergy [facility] Work Phone: (7 sources) traMADol; Translations: [tramadol] Drug Allergy [facility] Work Phone: (7 sources) Animal Dander Allergy to substance Itching (finding) [facility] Work Phone: (5 sources) Pepper Food allergy Swelling (morphologic abnormality) [facility] Work Phone: Medications Current Medications Medication Drug Class(es) Dates Sig (Normalized) Sig (Original) Tylenol (7 sources) Start: 10-17-2013 Tylenol Oral Start Date: 10/17/13 Status: Ordered albuterol MDI (90 mcg/inh) CFC free inhalation aerosol (7 sources) Start: 03-23-2022 take 2 puff(s) by inhalation every four hours as needed albuterol MDI (90 mcg/inh) CFC free inhalation aerosol See Instructions, 2 (TWO) PUFFS EVERY FOUR HOURS NEEDED. LATHA molina please, # 3 EA, 0 Refill(s), Pharmacy: [facility]/pharmacy #[id number], Active asthma, 169, cm, 03/23/22 12:37:00 EDT, Height, kg, 03/23/22 12:37:00 EDT, Dosing Weight Start Date: 03/23/22 Status: Ordered Problems Active Problems Problem Classification Problem Date Documented Da te Episodic/Chronic Anxiety disorders (7 sources) Chronic anxiety 02-14-2020 Chronic Asthma (7 sources) Asthma 10-17-2013 Chronic Chronic obstructive pulmonary disease and bronchiectasis (7 sources) Chronic obstructive lung disease 11-06-2017 Chronic Esophageal disorders (4 sources) Gastroesophageal reflux disease 03-22-2022 Chronic Headache; including migraine (8 sources) Migraine; Translations: [Migraine with persistent visual aura] 03-31-2015 Chronic Mood disorders (7 sources) Bipolar disorder, most recent episode depression 08-13-2020 Chronic Neoplasms of unspecified nature or uncertain behavior (7 sources) Neoplasm of pituitary gland 11-13-2017 Episodic Past or Other Problems Problem Classification Problem Date Documented Da te Episodic/Chronic Unclassified (1 source) ULTRASOUND BREAST Onset: 01-13-2017 Unclassified (1 source) Cough, unspecified; Translations: [Cough, unspecified] Onset: 06-21-2022 Results Test Name Value Interpretation Reference Range Facil ity Vital Signs Date Time Vital Sign Value Performing Clinician [facility] 06-20-2021 19:37-0500 Body temperature 99.32 [degF] DAMON RAMIREZ MD [facility] 06-20-2021 19:37-0500 Diastolic blood pressure 73 mm[Hg] DAMON RAMIREZ MD [facility] 06-20-2021 19:37-0500 Heart rate 110 /min DAMON RAMIREZ MD [facility] 06-20-2021 19:37-0500 Respiratory rate 18 /min DAMON RAMIREZ MD [facility] 06-20-2021 19:37-0500 Systolic blood pressure 114 mm[Hg] DAMON RAMIREZ MD [facility] Encounters Encounter Date Encounter Type Care Provider Facility Start: 06-21-2022 End: 06-26-2022 ambulatory JEREMIAH RUSHING DO Facility:B Start: 06-13-2022 End: 06-14-2022 ambulatory JEREMIAH RUSHING DO Facility:[facility] Start: 06-13-2022 End: 06-13-2022 Patient encounter procedure JEREMIAH RUSHING DO [facility] Start: 04-19-2022 End: 04-20-2022 ambulatory JEREMIAH Teresita RUSHING DO Facility:[facility] Start: 04-19-2022 End: 04-19-2022 Patient encounter procedure JEREMIAH Teresita RUSHING DO [facility] Start: 04-05-2022 End: 04-06-2022 ambulatory JEREMIAH RUSHING DO Facility:[facility] Start: 04-05-2022 End: 04-05-2022 Patient encounter procedure JEREMIAH RUSHING DO [facility] Start: 03-28-2022 End: 03-29-2022 ambulatory JEREMIAH RUSHING DO Facility:B Start: 03-28-2022 End: 03-28-2022 Patient encounter procedure JEREMIAH RUSHING DO [facility] Start: 09-03-2021 End: 09-04-[address] ANGEL GARCIA MD. Facility:B Start: 09-03-2021 End: 09-03-2021 Patient encounter procedure ANGEL GARCIA MD [facility] Start: 06-20-2021 End: 06-20-2021 Emergency department patient visit DAMON RAMIREZ MD [facility] Start: 05-31-2021 End: 05-31-2021 Patient encounter procedure ANGEL GARCIA MD [facility] Start: 01-17-2017 End: 01-18-2017 Ambulatory DENA IRBY Facility:[facility] Start: 01-13-2017 End: 01-14-2017 Ambulatory DENA IRBY Facility:[facility] Procedures Date Procedure Procedure Detail Performing Clinician Start: 11-13-2017 Lumpectomy of breast AN LUIS GARCIA MD Immunizations Immunization Date Immunization Notes Care Provider Fa cili 05-05-2014 pneumococcal polysaccharide vaccine, 23 valent ANGEL GARCIA MD [facility] 02-26-2013 tetanus toxoid, redu david diphtheria toxoid, and acellular pertussis vaccine, adsorbed AGNEL GARCIA MD [facility] Payers Date Payer Category Payer Unknown [id number] 1975 Unknown [id number] [id number] [id number] 1975 Unknown [id number] 2.16.8 [id number] 1975 Unknown [id number] [id number] [id number] 1977 Unknown [id number] 2.16.8 [id number] 1977 Unknown [id number] 2.16.8 [id number] 1975 Unknown [id number] [id number] [id number] Social History Date Type Detail Facility Start: 03-08-2019 Heavy tobacco smoker (finding) [facility] Sex Assigned At Female [facility] Clinical Notes 06-20-2021 to 04-05-2022 RadiologyRadiologyRadiologyRadiology Note Date & Type Note Facility 04-05-2022 Note ORIGINAL EXAMINATION: BONE DENSITOMETRY04/05/2022 1:56 pm TECHNIQUE: Dual energy bone densitometry lumbar spine and left hip. COMPARISON: 12/02/2016 HISTORY: ORDERING SYSTEM PROVIDED HISTORY: Reason for Exam: Osteoporosis Screening Osteoporosis screening. FINDINGS: Total bone mineral density of the L1-L4 is 0.869 grams per square centimeters, and T-score being -1.6, indicating that this patient has osteopenia. This represents 0.3% change in mineralization of the lumbar spine since the last study. Bone mineral density of the left femoral neck is 0.560 grams per square centimeters, and T-score being -2.6, indicating that this patient has osteoporosis. Total bone mineral density of the left hip is 0.755 grams per square centimeters, and T-score being -1.5, indicating that this patient has osteopenia. This represents 0% change in mineralization since the last study. IMPRESSION: Osteoporosis. I have personally reviewed the images of this examination and agree with the resident's findings and interpretation. Interpreted by: Hillary Turner Preliminary Report By: Luis F Acosta Electronically signed By Hillary Turner Dictated Date: 04/05/2022 2:00:49 PM Prelim Date: 04/05/2022 2:43:20 PM Sign Date: 04/05/2022 2:43:20 PM Ordering Provider: [facility] 04-05-2022 Note ORIGINAL EXAMINATION: BONE DENSITOMETRY04/05/2022 1:56 pm TECHNIQUE: Dual energy bone densitometry lumbar spine and left hip. COMPARISON: 12/02/2016 HISTORY: ORDERING SYSTEM PROVIDED HISTORY: Reason for Exam: Osteoporosis Screening Osteoporosis screening. FINDINGS: Total bone mineral density of the L1-L4 is 0.869 grams per square centimeters, and T-score being -1.6, indicating that this patient has osteopenia. This represents 0.3% change in mineralization of the lumbar spine since the last study. Bone mineral density of the left femoral neck is 0.560 grams per square centimeters, and T-score being -2.6, indicating that this patient has osteoporosis. Total bone mineral density of the left hip is 0.755 grams per square centimeters, and T-score being -1.5, indicating that this patient has osteopenia. This represents 0% change in mineralization since the last study. IMPRESSION: Osteoporosis. I have personally reviewed the images of this examination and agree with the resident's findings and interpretation. Interpreted by: Hillary Turner Preliminary Report By: Luis F Acosta Electronically signed By Hillary Turner Dictated Date: 04/05/2022 2:00:49 PM Prelim Date: 04/05/2022 2:43:20 PM Sign Date: 04/05/2022 2:43:20 PM Ordering Provider: [facility]2021 [facility] Patient Education 06/20/2021 19:58:02 Otitis Media, Antibiotic Treatment (Adult) Middle Ear Infection (Adult) You have an infection of the middle ear, the space behind the eardrum. This is also called acute otitis media (AOM). Sometimes it is caused by the common cold. This is because congestion can block the internal passage (eustachian tube) that drains fluid from the middle ear. When the middle ear fills with fluid, bacteria can grow there and cause an infection. Oral antibiotics are used to treat this illness, not ear drops. Symptoms usually start to improve within 1 to 2 days of treatment. Home care The following are general care guidelines: Finish all of the antibiotic medicine given, even though you may feel better after the first few days. You may use vhme-wuc-gphtnee medicine, such as acetaminophen or ibuprofen, to control pain and fever, unless something else was prescribed. If you have chronic liver or kidney disease or have ever had a stomach ulcer or gastrointestinal bleeding, talk with your healthcare provider before using these medicines. Do not give aspirin to anyone under 18 years of age who has a fever. It may cause severe illness or . Follow-up care Follow up with your healthcare provider, or as advised, in 2 weeks if all symptoms have not gotten better, or if hearing doesn't go back to normal within 1 month. When to seek medical advice Call your healthcare provider right away if any of these occur: Ear pain gets worse or does not improve after 3 days of treatment Unusual drowsiness or confusion Neck pain, stiff neck, or headache Fluid or blood draining from the ear canal Fever of 100.4 F (38 C) or as advised Seizure [id number] [employer]. [address] [place] [address]. All rights reserved. This information is not intended as a substitute for professional medical care. Always follow your healthcare professional's instructions. Follow Up Care 06/20/2021 19:29:54 With:ANGEL GARCIA MD Address: [address] [facility] [place] [address]- When:2-4 days [facility] Evaluation + Plan note Future Appointments Appointment Date:08/30/2021 03:30:00 PM Scheduled Provider:ANGEL GARCIA MD Location:[facility] Appointment Type:PC OV Diagnostic Tests PendingHepatitis C Antibody IgG 05/31/21 Future Scheduled TestsMRI Brain w/ Contrast 02/19/21 [facility] Evaluation + Plan note Future Appointments Appointment Date:08/30/2021 03:30:00 PM Scheduled Provider:ANGEL GARCIA MD Location:[facility] Appointment Type:PC OV Future Scheduled TestsMRI Brain w/ Contrast 02/19/21 [facility] Evaluation + Plan note Future Appointments Appointment Date:12/03/2021 04:00:00 PM Scheduled Provider:ANGEL GARCIA MD Location:[facility] Appointment Type:PC OV Future Scheduled TestsMRI Brain w/ Contrast 02/19/21 [facility] Evaluation + Plan note Future Appointments Appointment Date:03/30/2022 12:30:00 PM Scheduled Provider:JEREMIAH RUSHING DO Location:[facility] Appointment Type:PC OV Follow Up Appointment Date:04/13/2022 11:00:00 AM Scheduled Provider:JEREMIAH RUSHING DO Location:[facility] Appointment Type:PC OV Future Scheduled TestsBD Bone Density DEXA Axial Skeleton 03/23/22 [facility] Evaluation + Plan note Future Appointments Appointment Date:04/13/2022 11:00:00 AM Scheduled Provider:JEREMIAH RUSHING DO Location:[facility] Appointment Type:PC OV Appointment Date:04/19/2022 12:00:00 PM Scheduled Provider: Location:[facility] Appointment Type:PF PFT w/Bronchodiltor Appointment Date:05/16/2022 04:00:00 PM Scheduled Provider:JEREMIAH RUSHING DO Location:[facility] Appointment Type:PC OV Follow Up [facility] Evaluation + Plan note Future Appointments Appointment Date:05/16/2022 04:00:00 PM Scheduled Provider:JEREMIAH RUSHING DO Location:[facility] Appointment Type:PC OV Follow Up [facility] Evaluation + Plan note Future Appointments Appointment Date:06/20/2022 03:30:00 PM Scheduled Provider:JEREMIAH RUSHING DO Location:[facility] Appointment Type:PC OV [facility] Hospital course Narrative No data available for this section [facility] Hospital Discharge instructions No data available for this section [facility] Progress note No data available for this section [facility] Summary Purpose Family History No Family History Records FoundNo Family History Records Found Advance Directives No Advanced Directives Records FoundNo Advanced Directives Records Found Additional Source Comments INFORMATION SOURCE (unrecogn ized section and content) DATE CREATED AUTHOR AUTHOR'S ORGANIZ ATION 07/01/2022 [facility] ([place]) Care Team (unrecognized sect ion and content) Care Team Personnel Name: JEREMIAH RUSHING DO Position: P4 Physician - Primary Care Member Role: Primary Care Physician Address: Address: [address] [place] [address] [facility] [address] Care Team Related Persons Name: SKYLER BAR Address: Home [address] [address] [place] Address: Temporary [address] [place] [address] Name: RADHA BAR Name: TREVOR BAR Address: [address] [place], [place] [id number] [place] Address: Temporary [address] [id number] Name: ROCIO BAR Address: [address] [place], [place] [id number] Address: Temporary [address] [place], [place] [id number] Name: CHARITY MOSELEY Address: [address] [place] [address] [place] Name: CHARITY MOSELEY Address: [address] [place] [address] [place] Name: CHARITY MOSELEY Address: [address] [place] [address] [place] Name: CHARITY MOSELEY Address: [address] [place] [address] [place] Name: CHARITY MOSELEY Address: [address] [place] [address] [place] Care Team Personnel Name: JEREMIAH RUSHING DO Position: P4 Physician - Primary Care Member Role: Primary Care Physician Address: Address: [address] [place] [address] [place] Care Team Related Persons Name: SKYLER BAR Address: [address] [place], [place] [id number] [place] Address: Temporary [address] [place], [place] [id number] Name: RADHA BAR Name: TREVOR BAR Address: [address] [place], [place] [id number] [place] Address: Temporary [address] [place], [place] [id number] Name: ROCIO BAR Address: [address] [place], [place] [id number] Address: Temporary [address] [place], [place] [id number] Name: CHARITY MOSELEY Address: [address] [place] [address] [place] Name: CHARITY MOSELEY Address: [address] [place] [address] [place] Name: CHARITY MOSELEY Address: [address] [place] [address] [place] Name: CHARITY MOSELEY Address: [address] [place] [address] [place] Name: CHARITY MOSELEY Address: [address] [place] [address] [place] Care Team Personnel Name: JEREMIAH RUSHING DO Position: P4 Physician - Primary Care Member Role: Primary Care Physician Address: Address: [address] [place] [address] [place] Care Team Related Persons Name: SKYLER BAR Address: [address] [place], [place] [id number] [place] Address: Temporary [address] [place], [place] [id number] Name: RADHA BAR Name: TREVOR BAR Address: [address] [place], [place] [id number] [place] Address: Temporary [address] [place], [place] [id number] Name: ROCIO BAR Address: [address] [place], [place] [id number] Address: Temporary [address] [place], [place] [id number] Name: CHARITY MOSELEY Address: [address] [place] [address] [place] Name: CHARITY MOSELEY Address: [address] [place] [address] [place] Name: CHARITY MOSELEY Address: [address] [place] [address] [place] Name: CHARITY MOSELEY Address: [address] [place] [address] [place] Name: CHARITY MOSELEY Address: [address] [place] [address] [place] Care Team Personnel Name: JEREMIAH RUSHING DO Position: P4 Physician - Primary Care Member Role: Primary Care Physician Address: Address: [address] [place] [address] [place] Care Team Related Persons Name: SKYLER BAR Address: [address] [place], [place] [id number] [place] Address: Temporary [address] [place], [place] [id number] Name: RADHA BAR Name: TREVOR BAR Address: [address] [place], [place] [id number] [place] Address: Temporary [address] [place], [place] [id number] Name: ROCIO BAR Address: [address] [place], [place] [id number] Address: [address]porary [address] [place], [place] [id number] Name: CHARITY MOSELEY Address: [address] [place] [address] [place] Name: CHARITY MOSELEY Address: [address] [place] [address] [place] Name: CHARITY MOSELEY Address: [address] [place] [address] [place] Name: CHARITY MOSELEY Address: [address] [place] [address] [place] Name: CHARITY MOSELEY Address: [address] [place] [address] [place] FOR RECORDS PERTAINING TO PATIENTS WHO ARE OR HAVE BEEN ENROLLED IN A CHEMICAL DEPENDENCY/SUBSTANCEABUSE PROGRAM, SOME INFORMATION MAY BE OMITTED. This clinical summary was aggregated from multiple sources. Caution should be exercised in using it in the provision of clinical care. This summary normalizes information from multiple sources, and as a consequence, information in this document may materially change the coding, format and clinical context of patient data. In addition, data may be omitted in some cases. CLINICAL DECISIONS SHOULD BE BASED ON THE PRIMARY CLINICAL RECORDS. [facility]. provides no warranty or guarantee of the accuracy or completeness of information in this document.
[2023-08-25 13:34] VITALS: BP 116/75; PULSE 64; RESP 18; TEMP 36.8; O2SAT 99
== END 2023-08-25 13:39 | disposition home or self-care (01) ==
PROVIDERS: Emergency Provider Emergency Medicine; Visit Provider Emergency Medicine
DX: M60.9 Myositis, unspecified (principal); J10.1 Influenza due to other identified influenza virus with other respiratory manifestations; M79.606 Pain in leg, unspecified; F17.210 Nicotine dependence, cigarettes, uncomplicated; G43.909 Migraine, unspecified, not intractable, without status migrainosus
CPT/HCPCS: 87631; 96372; 99282

== ENCOUNTER 2023-10-08 20:20 | Emergency (ER) | payer MEDICAID, SELFPAY ==
[2023-10-08 20:21] VITALS: BP 143/115; PULSE 100; PULSE 97; RESP 24; TEMP 36; O2SAT 98; BMI 16.0
--- NOTE | 2023-10-08 20:55 | RAD_ITS ---
EXAM: XR LUMBOSACRAL SPINE, 2 OR 3 VIEWS CLINICAL INDICATION: fall/injury TECHNIQUE: Frontal and lateral views of the lumbar spine and sacrum. COMPARISON: No relevant prior studies available. FINDINGS: VERTEBRAE: Unremarkable. Preserved vertebral body height. No fracture. No spondylolisthesis. Preservation of the normal lumbar lordosis. No significant facet arthropathy. DISC SPACES: No acute findings. Disc spaces are maintained. GASTROINTESTINAL TRACT: Unremarkable as visualized. Included bowel gas pattern is non-obstructive. RAD/Lumbar Spine 2 or 3 Views IMPRESSION: No evidence of lumbar spinal fracture or spondylolisthesis. Electronically Signed: Quinton Cifuentes MD at 23:00 EDT ,
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
[2023-10-08] MEDS: HYDROcodone Bitartrate/Apap 5/325 Tablet PO (21:10)
[2023-10-08] MEDS: Metoclopramide 10 MG Tablet PO (21:10)
--- NOTE | 2023-10-08 21:15 | RAD_ITS ---
EXAM: XR SACRUM AND COCCYX, 2 OR MORE VIEWS CLINICAL INDICATION: fall/injury TECHNIQUE: Frontal and lateral views of the sacrum and coccyx. COMPARISON: No relevant prior studies available. FINDINGS: SACRUM/COCCYX: Unremarkable. No displaced fracture. No destructive or sclerotic lesions. Note that overlapping bowel shadows may however obscure fine detail in the frontal view. Sacroiliac joints are unremarkable. SOFT TISSUES: Multiple phleboliths in the right inferior pelvis. No soft tissue swelling or gas. RAD/Sacrum-Coccyx min 2 Views IMPRESSION: No radiographical evidence of acute or healing fracture or malalignment. If still concerned, CT is more sensitive. Electronically Signed: Quinton Cifuentes MD at 22:55 EDT ,
[2023-10-08 22:47] VITALS: BP 122/68; PULSE 85; RESP 16; TEMP 36.6; O2SAT 95
== END 2023-10-08 23:15 | disposition home or self-care (01) ==
PROVIDERS: Emergency Provider Emergency Medicine; Visit Provider Emergency Medicine
DX: S30.0XXA Contusion of lower back and pelvis, initial encounter (principal); G43.909 Migraine, unspecified, not intractable, without status migrainosus; F17.210 Nicotine dependence, cigarettes, uncomplicated; W18.30XA Fall on same level, unspecified, initial encounter; Y93.K1 Activity, walking an animal
CPT/HCPCS: 72100; 72220; 99282

== ENCOUNTER 2023-10-14 20:28 | Emergency (ER) | payer MEDICAID, SELFPAY ==
[2023-10-14 20:28] VITALS: BP 139/99; PULSE 100; RESP 16; TEMP 36.7; O2SAT 99; BMI 16.0
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
[2023-10-14] MEDS: Ketorolac 30 MG/ML Syringe IV (20:52)
[2023-10-14] MEDS: 0.9% Normal Saline (1000mL) 1,000 ML 1000 ML IV (20:52)
[2023-10-14] MEDS: DiphenhydrAMINE 50 MG/ML Syringe 25 MG IV (20:53)
[2023-10-14] MEDS: Metoclopramide 10 MG/2 ML Vial IV (20:54)
[2023-10-14 21:54] VITALS: BP 134/82; PULSE 85; RESP 12; TEMP 36.6; O2SAT 98
== END 2023-10-14 21:56 | disposition home or self-care (01) ==
PROVIDERS: Emergency Provider Emergency Medicine; Visit Provider Emergency Medicine
DX: G43.909 Migraine, unspecified, not intractable, without status migrainosus (principal); F17.210 Nicotine dependence, cigarettes, uncomplicated; Z76.0 Encounter for issue of repeat prescription
CPT/HCPCS: 96361; 96374; 96375; 99283; J7030; A4216

== ENCOUNTER 2023-10-25 22:16 | Emergency (ER) | payer MEDICAID, SELFPAY ==
[2023-10-25 22:17] VITALS: BP 166/88; PULSE 78; RESP 20; TEMP 36.3; O2SAT 97; BMI 17.0
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
[2023-10-25 22:44] VITALS: BP 150/68; PULSE 80; RESP 20; TEMP 36.3; O2SAT 97
[2023-10-25] MEDS: Silver Sulfadiazine 1% Crm 50 gm Bottle 1 APPLIC TOPICAL (22:56)
== END 2023-10-25 23:07 | disposition home or self-care (01) ==
LOC: ED 22:32
PROVIDERS: Emergency Provider Emergency Medicine; Visit Provider Emergency Medicine
DX: T24.211A Burn of second degree of right thigh, initial encounter (principal); F17.210 Nicotine dependence, cigarettes, uncomplicated; T31.0 Burns involving less than 10% of body surface; X12.XXXA Contact with other hot fluids, initial encounter; Z23 Encounter for immunization
CPT/HCPCS: 99283

== ENCOUNTER 2024-03-16 16:04 | Emergency (ER) | payer SELFPAY ==
[2024-03-16 16:05] VITALS: BP 89/43; PULSE 71; RESP 20; TEMP 36.2; O2SAT 96
--- NOTE | 2024-03-16 16:18 | RAD_ITS ---
INDICATION: trauma EXAMINATION/TECHNIQUE: X-RAY - RIGHT XR Hand Min 3 Views 3 VIEWS COMPARISON: No relevant prior comparison study available FINDINGS: SOFT TISSUES: There is subcutaneous air adjacent to the third, fourth and fifth metatarsals and fourth and fifth metacarpophalangeal joints. No radiopaque foreign body. BONES/JOINTS: No acute fracture or subluxation.. Normal alignment. Preservation of the joint space.. No sclerotic or destructive changes observed. RAD/Hand Min 3 Views IMPRESSION: No acute osseous injury. Subcutaneous air adjacent to the third, fourth and fifth metatarsals and fourth and fifth MCP joints, likely secondary to recent trauma, cannot exclude a gas producing organism. Electronically Signed: Adriana Napier MD at 17:08 EDT ,
--- NOTE | 2024-03-16 16:19 | EX.ED.UPPERE ---
HPI History of Present Illness Chief Complaint: Bite Narrative Narrative: 48-year-old female past medical history of migraine headaches presents with dog bite to her right hand. She states that her 2 dogs that are known to her or in a fight and she went to break it up. Usually she can put her left hand up, and they stop biting. However, she had switched hands, and one of her dogs bit her in her right hand. She sustained a laceration to the dorsum of her right hand, and to her middle finger. She complains of pain in her fifth digit as well. She is unsure of her last tetanus immunization and is requesting 1 today. She is right-hand dominant. She states her dog's immunizations are current. She presents with injury to her right hand and pain that is worse with movement. [facility] Medical History Migraine headache Home Medications ?Medication ?Instructions ?Recorded ?Last Taken ?Type oxycodone-acetaminophen 5 mg-325 1 tab PO Q4H PRN PRN Pain #12 tabs 06/26/16 Unknown Rx mg tablet Magic Mouth Wash 5 ml PO Q6H PRN PRN Sore Throat 09/07/17 Unknown Rx #120 mL chlorhexidine gluconate 0.12 % 15 ml MM BID #300 mL 04/13/18 Unknown Rx mouthwash lidocaine HCl 2 % mucosal solution 15 ml MM TID PRN Pain ##30 04/13/18 Unknown Rx prochlorperazine maleate 5 mg 5 mg PO TID PRN headache 7 days 10/18/22 Unknown Rx tablet (Compazine) #21 tabs ondansetron 4 mg disintegrating 4 mg PO Q8H PRN PRN Nausea #10 tabs 07/07/23 Unknown Rx tablet rizatriptan 5 mg disintegrating See Rx Instructions PO .COMPLEX 07/07/23 Unknown Rx tablet #10 tabs meloxicam 15 mg tablet 15 mg PO DAILY #7 tabs 08/25/23 Unknown Rx hydrocodone-acetaminophen 5-325mg 1 tab PO Q6H PRN PRN Pain 3 days 10/08/23 Unknown Rx 5mg-325mg #12 TABLETS cyclobenzaprine 10 mg tablet 10 mg PO TID PRN Muscle Spasm #20 10/14/23 Unknown Rx TABLETS ondansetron 4 mg disintegrating 4 mg PO Q8H PRN PRN Nausea #10 tabs 10/14/23 Unknown Rx tablet rizatriptan 5 mg tablet 5 mg PO Q2H PRN migraine headache 10/14/23 Unknown Rx #10 tabs hydrocodone-acetaminophen 5-325mg 1 tab PO Q4H PRN PRN Pain 2 days 10/25/23 Unknown Rx 5mg-325mg #14 TABLETS amoxicillin 875 mg-potassium 1 tab PO BID #14 tabs 03/16/24 Unknown Rx clavulanate 125 mg tablet hydrocodone-acetaminophen 5-325mg 1 tab PO Q6H PRN PRN Pain 3 days 03/16/24 Unknown Rx 5mg-325mg #10 TABLETS Allergy/AdvReac Type Severity Reaction Status Date / Time aspirin Allergy Nausea/Vom/ Verified 03/16/24 16:05 Diarrhea ibuprofen Allergy Nausea/Vom/ Verified 03/16/24 16:05 Diarrhea naproxen (From Naprosyn) Allergy Nausea/Vom/ Verified 03/16/24 16:05 Diarrhea tramadol HCl (From Ultram) Allergy Nausea/Vom/ Verified 03/16/24 16:05 Diarrhea Surgical History Hx of cholecystectomy Social History household members: family Smoking Status: Current every day smoker tobacco type: cigarettes ROS ROS ED ROS Narrative Review of systems positive for right hand pain with laceration to dorsum of right hand and middle finger. She has small abrasion on the medial aspect of her left hand. Pain worse with movement of right hand and fourth and fifth fingers. Denies other injuries. EXAM Physical Exam Narrative Exam Narrative: Afebrile. Vital signs noted. GCS 15. ABCs are intact. Inspection of the right hand does show a 1 cm elliptical laceration on the dorsum of her right hand more towards the proximal metacarpal, fourth digit. She appears neurovascularly intact with good capillary refill of all 5 fingers. There is also a laceration on the lateral aspect of her right fourth digit at the base. Tenderness to palpation along fifth metacarpal and fourth metacarpal and fifth proximal phalanx. Range of motion limited secondary to pain. Small abrasion on medial aspect of left hand, no active bleeding. Const Vital Signs: 03/16/24 16:05 Temperature 97.2 F L Temperature Source Temporal Pulse Rate 71 Respiratory Rate 20 H Blood Pressure 89/43 L Blood Pressure Mean 58 Pulse Ox 96 Oxygen Delivery Method Room Air MDM MDM MDM Narrative Medical decision making narrative: Concern would be for open fracture from dog bite given her lacerations on her right hand. She was given a Boostrix intramuscularly, and [place] for analgesia. Wounds were cleansed. She will also be given Augmentin here for prophylaxis. X-rays obtained of the right hand interpreted by myself independently shows no evidence of an acute fracture. There is gas in the soft tissue consistent with open wound. These are her domesticated animals and she states that there vaccinations are current, so I feel no need for rabies prophylaxis. As these are lacerations to the hand with multiple abrasions, they are less than 1 cm. The one on the dorsum of her right hand was Steri-Stripped after cleansing, and the other left open. She has other multiple areas. She was written prescriptions for 10 Vicodin tablets, and also for Augmentin as prophylaxis. I feel she can be discharged safely home with follow-up. Return instructions were reviewed. Disposition is discharged home in stable condition. Discharge Plan Triage Chief Complaint: Bite ED Provider: Pavan Winters Dx/Rx/DC Orders Clinical Impression: Dog bite of hand, Need for Tdap vaccination Instructions: ED Dog Bite Prescriptions: New amoxicillin-pot clavulanate 875-125 mg tablet 1 tab PO BID Qty: 14 0RF hydrocodone-acetaminophen 5-325 mg tablet 1 tab PO Q6H PRN PRN (Reason: Pain) 3 Days Qty: 10 0RF No Action oxycodone-acetaminophen 1 TABLET tablet 1 tab PO Q4H PRN PRN (Reason: Pain) Qty: 12 0RF Magic Mouth Wash 5 ml PO Q6H PRN PRN (Reason: Sore Throat) Qty: 120 0RF Rx Instructions: Pharmacist: Compound with equal parts DiphenhydrAMINE, Mylanta, and Lidocaine Viscous. swish and swallow as needed. chlorhexidine gluconate 15 ML mouthwash 15 ml MM BID Qty: 300 0RF lidocaine HCl 15 ML solution 15 ml MM TID PRN (Reason: Pain) Qty: 30 0RF Rx Instructions: Swish and Spit before meals prochlorperazine maleate [Compazine] 5 mg tablet 5 mg PO TID PRN (Reason: headache) 7 Days Qty: 21 0RF rizatriptan 5 mg tablet,disintegrating See Rx Instructions .ROUTE .COMPLEX Qty: 10 0RF Rx Instructions: take 1 tablet at onset of headache; if no relief, may repeat 1 tablet after at least 2 hrs ondansetron [ondansetron] 4 mg tablet,disintegrating 4 mg PO Q8H PRN PRN (Reason: Nausea) Qty: 10 0RF cyclobenzaprine [cyclobenzaprine] 10 mg tablet 10 mg PO TID PRN (Reason: Muscle Spasm) Qty: 20 0RF ondansetron [ondansetron] 4 mg tablet,disintegrating 4 mg PO Q8H PRN PRN (Reason: Nausea) Qty: 10 0RF rizatriptan 5 mg tablet 5 mg PO Q2H PRN (Reason: migraine headache) Qty: 10 0RF Rx Instructions: do not exceed 6 doses per 24 hrs hydrocodone-acetaminophen [hydrocodone-acetaminophen] 5-325 mg tablet 1 tab PO Q4H PRN PRN (Reason: Pain) 2 Days Qty: 14 0RF meloxicam 15 mg tablet 15 mg PO DAILY Qty: 7 0RF hydrocodone-acetaminophen [hydrocodone-acetaminophen] 5-325 mg tablet 1 tab PO Q6H PRN PRN (Reason: Pain) 3 Days Qty: 12 0RF Primary Care Provider: Jose Daniel Tanner Referrals: Jose Daniel Tanner DO [Primary Care Provider] - 3-5 Days Print Language: Armenian Disposition Disposition: Home, Self Care Discharge Date/Time: 03/16/24 17:55
[2024-03-16] MEDS: HYDROcodone Bitartrate/Apap 5/325 Tablet PO (16:25)
[2024-03-16] MEDS: Diphth,Pertuss(Acell),Tet Vac 0.5 ML Vial IM (16:25)
[2024-03-16] MEDS: Amox/Clavulanate 875 MG Tablet PO (16:29)
[2024-03-16] MEDS: Ondansetron ODT 4 MG Tablet PO (17:36)
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
== END 2024-03-16 17:55 | disposition home or self-care (01) ==
PROVIDERS: Emergency Provider Emergency Medicine; Visit Provider Emergency Medicine
DX: S61.451A Open bite of right hand, initial encounter (principal); F17.210 Nicotine dependence, cigarettes, uncomplicated; W54.0XXA Bitten by dog, initial encounter; Z23 Encounter for immunization
CPT/HCPCS: 73130; 90471; 90715; 99284

== ENCOUNTER 2024-04-03 10:45 | Emergency (ER) | payer MEDICAID, SELFPAY ==
[2024-04-03 10:46] VITALS: BP 144/131; PULSE 111; RESP 22; TEMP 36.3; O2SAT 97; BMI 16.7
--- NOTE | 2024-04-03 11:15 | EDS_ITS ---
HPI History of Present Illness Chief Complaint: Headache Narrative Narrative: Patient is a 48-year-old female past medical history of migraine headaches who presents to the [facility] part with chief complaint of headache. Patient states last night she developed a migraine headache and states that she did not have her migraine headache medication she is out of this. States this gradually came on and progressively worsened throughout the day and is not getting better today prompting her here further evaluation management. Patient states that this is her typical pain for her migraine headache and notes that she has an aura associated with it. Patient denies any head injuries, recent sick contacts. [facility] Medical History Migraine headache Home Medications ?Medication ?Instructions ?Recorded ?Last Taken ?Type meloxicam 15 mg tablet 15 mg PO DAILY #7 tabs 08/25/23 Unknown Rx cyclobenzaprine 10 mg tablet 10 mg PO TID PRN Muscle Spasm #20 10/14/23 Unknown Rx TABLETS ondansetron 4 mg disintegrating 4 mg PO Q6H PRN nausea and 04/03/24 Unknown Rx tablet vomiting #20 tabs rizatriptan 5 mg tablet 5 mg PO Q2H PRN migraine headache 04/03/24 Unknown Rx #10 tabs Allergy/AdvReac Type Severity Reaction Status Date / Time aspirin Allergy Nausea/Vom/ Verified 03/16/24 16:05 Diarrhea ibuprofen Allergy Nausea/Vom/ Verified 03/16/24 16:05 Diarrhea naproxen (From Naprosyn) Allergy Nausea/Vom/ Verified 03/16/24 16:05 Diarrhea tramadol HCl (From Ultram) Allergy Nausea/Vom/ Verified 03/16/24 16:05 Diarrhea Surgical History Hx of cholecystectomy Social History household members: family Smoking Status: Heavy Smoker (>10/day) ROS ROS ED ROS Narrative Constitutional: Complains of headache as noted above denies fevers, chills, lightheadedness, dizziness Eyes: Denies change in vision double vision blurry vision Cardiovascular: Denies chest pain or palpitations Respiratory: Denies coughing wheezing shortness of breath Abdomen: Denies abdominal pain nausea vomit diarrhea : Denies any urinary symptoms Neurological: Denies numbness, 80s, tingling Musculoskeletal: Denies back pain Skin: Denies rashes lesions EXAM Physical Exam Narrative Exam Narrative: General: Patient lying in bed rest comfortably did not appear to be in acute distress Head: Atraumatic, normocephalic Eyes: PERRL bilateral, EOMI bilateral, no conjunctival injection noted Neck: Soft, supple, trach midline Cardiovascular: Regular rate and rhythm no murmurs gallops rubs noted Respiratory: Clear to auscultation bilaterally no rales rhonchi or wheezes noted Abdomen: Soft, nondistended, nontender to palpation Extremities: +5/5 strength noted in the bilateral upper and lower extremities, radial pulses +2/4 in the bilateral upper extremities Neurological: Patient following commands knew that she was at [facility] years 2023 Skin: Warm, dry, intact Const Vital Signs: 04/03/24 10:46 04/03/24 12:45 Temperature 97.3 F L Temperature Source Temporal Pulse Rate 111 H 84 Respiratory Rate 22 H 16 Blood Pressure 144/131 H 103/52 L Blood Pressure Mean 135 69 Pulse Ox 97 94 Oxygen Delivery Method Room Air Room Air MDM MDM MDM Narrative Medical decision making narrative: Patient is a 48-year-old female who presents to the emergency department with a chief complaint of migraine headache. Patient will be given IV fluids, Reglan, Tylenol and Benadryl and then be reevaluated. On reevaluation of the patient she states that she is feeling significantly improved when she came in she would like to go home at this point time. Patient is requesting prescription be sent for Zofran as well as her migraine relief medication. Patient was advised to follow-up with her primary care physician in the outpatient setting. She was encouraged return with worsening symptoms or other concerns. Patient is agreeable this plan all question concerns answered she was discharged home in stable condition. Discharge Plan Triage Chief Complaint: Headache ED Provider: Alirio Beckham Dx/Rx/DC Orders Clinical Impression: Migraine headache Prescriptions: New ondansetron 4 mg tablet,disintegrating 4 mg PO Q6H PRN (Reason: nausea and vomiting) Qty: 20 0RF rizatriptan 5 mg tablet 5 mg PO Q2H MDD 6 doses PRN (Reason: migraine headache) Qty: 10 0RF Rx Instructions: do not exceed 6 doses per 24 hrs No Action cyclobenzaprine 10 mg tablet 10 mg PO TID PRN (Reason: Muscle Spasm) Qty: 20 0RF Patient Comments: Patient states she has some in storage but hasn't taken it recently meloxicam 15 mg tablet 15 mg PO DAILY Qty: 7 0RF Patient Comments: Patient states she has some in storage but hasn't been taking it recently Primary Care Provider: Jose Daniel Tanner Referrals: Jose Daniel Tanner DO [Primary Care Provider] - Activity Restrictions/Additional Instructions: Stay well-hydrated. Follow-up with your primary care physician outpatient setting. Return with worsening symptoms or other concerns. Do not exceed 6 doses in 24 hours of the rizatriptan. Take Zofran as prescribed. Use Tylenol and ibuprofen for headache. Print Language: Gambian
[2024-04-03] MEDS: Metoclopramide 10 MG/2 ML Vial 5 MG IV (11:38)
[2024-04-03] MEDS: DiphenhydrAMINE 50 MG/ML Syringe 25 MG IV (11:38)
[2024-04-03] MEDS: Acetaminophen 500 MG Tablet 1000 MG PO (11:39)
[2024-04-03] MEDS: 0.9% Normal Saline (1000mL) 1,000 ML 999 ML IV (11:39)
[2024-04-03 12:45] VITALS: BP 103/52; PULSE 84; RESP 16; O2SAT 94
[2024-04-03 13:12] VITALS: BP 116/67; PULSE 89; RESP 18; TEMP 36.2; O2SAT 100
== END 2024-04-03 13:16 | disposition home or self-care (01) ==
PROVIDERS: Emergency Provider Emergency Medicine; Visit Provider Emergency Medicine
DX: G43.909 Migraine, unspecified, not intractable, without status migrainosus (principal)
CPT/HCPCS: 96361; 96374; 96375; 99282; J7030; A4216